=== PATIENT | female | born 1950 | race Caucasian/White ===

== ENCOUNTER 2016-11-10 23:09 | Inpatient (IN) | payer MEDICARE, MEDICAID ==
[~2016-11-10] VITALS: Ht 160 cm; Wt 68.0 kg
--- NOTE | 2016-11-10 23:09 | NUR ---
to bed 2 bib private ambulance from [facility] for increased agitation. receive pt calm and cooperative, no acute distress noted, resp even and unlabored. pt denies si or hi at this time. pt aaox4. pending er md hearn.
--- NOTE | 2016-11-10 23:11 | NUR ---
er md at bedside to eval pt with orders received.
--- NOTE | 2016-11-10 23:27 | NUR ---
blood drawn by shelf stocker.
--- NOTE | 2016-11-10 23:40 | NUR ---
urine sample collected and sent to lab.
[2016-11-10 23:45] LABS: HEMATOCRIT 40 % (33-45); HEMOGLOBIN 12.9 g/dL (11.5-14.8); MEAN CORPUSCULAR HEMOGLOBIN 29 PG (26.0-33.0); MEAN CORPUSCULAR HGB CONC 32 g/dl (31.0-36.0); MEAN CORPUSCULAR VOLUME 91 fL (82-100); PLATELET COUNT (AUTO) 255 /CMM (150-450); RDW COEFFICIENT OF VARIATION 13.3 (11.5-15.0); WHITE BLOOD COUNT (AUTO) 9.1 K/uL (4.3-11.0)
[2016-11-10 23:46] LABS: BASOPHILS % (AUTO) 0.1 % (0.0-2.0); EOSINOPHILS # (AUTO) 0.1 /CMM (0.0-0.7); EOSINOPHILS % (AUTO) 1.1 % (0.0-6.0); LYMPHOCYTES # (AUTO) 2.1 /CMM (0.8-4.8); LYMPHOCYTES % (AUTO) 22.9 % (20.0-44.0); MONOCYTES # (AUTO) 0.5 /CMM (0.1-1.30); MONOCYTES % (AUTO) 5.8 % (2.0-12.0); NEUTROPHILS # (AUTO) 6.4 /CMM (1.8-8.9); NEUTROPHILS % (AUTO) 70.1 % (43.0-81.0)
[2016-11-10 23:48] LABS: CARBON DIOXIDE 33 mmol/L (21-32); CHLORIDE 103 mmol/L (98-107); POTASSIUM 4.4 mmol/L (3.5-5.1); SODIUM SERUM 141 mmol/L (136-145)
[2016-11-10 23:49] LABS: CALCIUM, SERUM 9.2 mg/dL (8.5-10.1); CREATININE 0.9 mg/dL (0.6-1.3); GLUCOSE 99 mg/dL (74-106); UREA NITROGEN, BLOOD 14 mg/dL (7-18)
[2016-11-10 23:53] LABS: ALANINE AMINOTRANSFERASE 17 U/L (12-78); ALKALINE PHOSPHATASE 133 U/L (46-116); ASPARTATE AMINOTRANSFERASE 19 U/L (15-37); BILIRUBIN,DIRECT 0.1 mg/dL (0.0-0.2); BILIRUBIN,TOTAL 0.3 mg/dL (0.2-1.0)
[2016-11-10 23:54] LABS: ACETAMINOPHEN 0 ug/ml (10-30); ALBUMIN 3.3 g/dL (3.4-5.0); ALCOHOL, BLOOD < 3 mg/dL (0-0); SALICYLATE 1.6 mg/dL (2.8-20.0); TOTAL PROTEIN, SERUM 7.8 g/dL (6.4-8.2)
[2016-11-11 00:05] LABS: APPEARANCE,URINE CLEAR (CLEAR)
[2016-11-11 00:06] LABS: COLOR,URINE YELLOW (YELLOW)
--- NOTE | 2016-11-11 00:06 | NUR ---
Johnny COUGHLINW paged for psych eval.
[2016-11-11 00:07] LABS: PROTEIN,URINE TRACE mg/dl (NEGATIVE); UGLUCOSE NEGATIVE (NEGATIVE)
[2016-11-11 00:08] LABS: BILIRUBIN,URINE NEGATIVE (NEGATIVE); BLOOD, URINE TRACE Ery/uL (NEGATIVE); KETONES,URINE TRACE (NEGATIVE); UROBILINOGEN,URINE 0.2 EU/dL (0.2)
[2016-11-11 00:09] LABS: LEUKOCYTE ESTERASE ,URINE 1+ (NEGATIVE); NITRITE, URINE NEGATIVE (NEGATIVE)
[2016-11-11 00:12] LABS: BACTERIA,URINE None seen /HPF (None Seen); SQUAMOUS EPITHELIAL CELL,UR Rare /HPF (None Seen); URINE AMORPHOUS URATE Few /HPF (None Seen)
--- NOTE | 2016-11-11 01:05 | NUR ---
Johnny COUGHLINW at bedside to eval pt. pt remains calm and cooperative at this time.
--- NOTE | 2016-11-11 01:49 | NUR ---
transport called ([facility]) eta 45 min.
--- NOTE | 2016-11-11 02:16 | NUR ---
report called to jen sargent. pending hospital admission.
--- NOTE | 2016-11-11 03:23 | NUR ---
GPS/RN NOTE: ADMITTED FROM [facility] ER, INITIALLY CAME FROM [facility], CAME TO THE UNIT AT 0300 ACCOMPANIED BY 1 MALE ER STAFF. PATIENT ADMITTED ON 5150 HOLD FOR GD. PER HOLD PATIENT HAS HALLUCINATIONS AND DELUSIONS, THREATENS HER ROOMMATE, HX OF PTSD. UPON FACE TO FACE, PATIENT IS A/O X4, COOPERATIVE AND AGITATED. PATIENT THINKS HER WATER IS POISON, STAFF SMOKES COCAINE, CHARGE NURSE HIRES BIG MEN AND SHOOT LASERS, UNABLE TO CARE FOR PATIENT DUE TO HER MENTAL STATE. PATIENT WAS PLACED IN BED COMFORTABLY. PATIENT IS AWAKE, ALERT, ORIENTED X4, AMBULATORY. SHOWS NO S/S OF PAIN AT THIS TIME. RESPIRATION EVEN, BREATHING PATTERN NON-LABORED, WITH EQUAL RISE AND FALL OF THE CHEST. NO APPARENT DISTRESS NOTED. PATIENT IS COOPERATIVE, CALM, RESPONDS APPROPRIATELY TO QUESTIONS. PATIENT IS AMBULATORY, NOTED SPLINT ON HER RIGHT ANKLE. SKIN INTACT. BELONGINGS WERE INVENTORIED AND CHECKED FOR CONTRABAND. PATIENT IS UNDER THE PSYCHIATRIC CARE OF DR. BISHOP, AND UNDER THE MEDICAL CARE OF DR. PRUITT. VALUABLES WERE CHECKED IN TO SAFE. MEDICATION RECONCILIATION FOR FOLLO-UP IN AM. MRSA SCREE TO BE DONE. BED LOCKED AND PLACED ON LOWEST POSITION. WILL CONTINUE TO MONITOR Q 15 MINS. TO MAINTAIN SAFETY.
[2016-11-11] MEDS ORDERED: MAG HYDROX/AL HYDROX/SIMETH 30 ML UDC PO PRN (03:30)
[2016-11-11] MEDS ORDERED: MAGNESIUM HYDROXIDE 30 ML UDC PO PRN (03:30)
[2016-11-11] MEDS ORDERED: ACETAMINOPHEN 325 MG TABLET PO PRN (03:30)
[2016-11-11] MEDS ORDERED: BUPR300T54 PO (04:29)
[2016-11-11] MEDS ORDERED: OMEP20TA68 PO (04:29)
[2016-11-11] MEDS ORDERED: DOCU-170 PO (04:29)
[2016-11-11] MEDS ORDERED: LATA2.5D2 EACHEYE (04:29)
[2016-11-11] MEDS ORDERED: OXYC10TA49 PO (04:29)
[2016-11-11] MEDS ORDERED: CLON0.1T PO (04:29)
[2016-11-11] MEDS ORDERED: CALC-7 PO (04:29)
[2016-11-11] MEDS ORDERED: ARIP5TAB4 PO (04:29)
[2016-11-11] MEDS ORDERED: GABA600T2 PO (04:29)
[2016-11-11] MEDS ORDERED: MULT1TAB73 PO (04:29)
[2016-11-11] MEDS ORDERED: ASCO500T8 PO (04:29)
[2016-11-11] MEDS ORDERED: ALEN70TA45 PO (04:29)
[2016-11-11] MEDS ORDERED: METO-302 PO (04:29)
--- NOTE | 2016-11-11 06:47 | NUR ---
GPS/RN NOTE: FAMILY CALLED TO NOTIFY SHANKAR: ADMISSION, NO ANSWER, LEFT A MESSAGE
[2016-11-11] MEDS ORDERED: OXYC-128 PO (07:55)
[2016-11-11] MEDS ORDERED: DOCU-25 PO (07:55)
[2016-11-11] MEDS ORDERED: CHOL100044 PO (07:55)
[2016-11-11] MEDS ORDERED: POLY17PO4 PO (07:55)
[2016-11-11] MEDS ORDERED: LUBI24CA7 PO (07:55)
[2016-11-11] MEDS ORDERED: LIDO30AD10 TP (07:55)
[2016-11-11] MEDS ORDERED: CLON0.5T4 PO (07:55)
[2016-11-11] MEDS ORDERED: TRAZ-147 PO (07:55)
[2016-11-11] MEDS ORDERED: GUAI5SYR PO (07:55)
[2016-11-11] MEDS ORDERED: MULT-659 PO (07:55)
[2016-11-11] MEDS ORDERED: PSEU-231 PO (07:55)
[2016-11-11] MEDS ORDERED: DULO30CA2 PO (07:55)
[2016-11-11] MEDS ORDERED: ONDA-25 PO (07:55)
[2016-11-11 08:00] VITALS: BP 148/98
[2016-11-11] MEDS ORDERED: CLONIDINE HCL 0.1 MG TABLET PO PRN (12:30)
[2016-11-11] MEDS ORDERED: GUAIFENESIN/D-METHORPHAN HB 5 ML UDC PO PRN (12:30)
[2016-11-11] MEDS ORDERED: DOCUSATE SODIUM 100 MG CAPSULE PO PRN (12:30)
[2016-11-11] MEDS ORDERED: oxyCODONE/APAP (5/325 MG) 1 UDTAB TABLET PO PRN (12:30)
[2016-11-11] MEDS ORDERED: PSEUDOEPHEDRINE HCL 30 MG TABLET PO PRN (12:30)
[2016-11-11] MEDS ORDERED: GABAPENTIN 300 MG CAPSULE PO SCH (13:30)
[2016-11-11] MEDS ORDERED: ONDANSETRON 4 MG TAB.RAPDIS PO PRN (14:00)
[2016-11-11] MEDS: GABAPENTIN 300 MG CAPSULE PO SCH ×2 (14:48→20:15)
[2016-11-11 16:00] VITALS: BP 144/95
[2016-11-11] MEDS: LATANOPROST EYE DROP 0.005% 2.5 ML BOTTLE EACHEYE SCH (16:28)
[2016-11-11] MEDS: DOCUSATE SODIUM 100 MG CAPSULE PO SCH ×2 (16:28→17:00)
[2016-11-11] MEDS: CALCIUM CARB 250MG /VITAMIN D 1 UDTAB PO SCH (16:28)
[2016-11-11] MEDS: METOPROLOL SUCCINATE 25 MG TAB.SR.24H PO SCH (16:28)
--- NOTE | 2016-11-11 16:28 | NUR ---
Patient resides at [facility] [address] [phone]). emergency service worker spoke to patient's son Felton Gill ([phone]) who confirmed that patient was living at [facility]. emergency service worker spoke Ruen from who stated that patient may need another placement. emergency service worker will help form a safe and proper discharge.
[2016-11-11 17:10] LABS: CHOLESTEROL 194 mg/dL (<200); HDL CHOLESTEROL 60 mg/dL (40-60); LDL 114 mg/dL (0-99); TRIGLYCERIDES 67 mg/dL (30-150)
[2016-11-11] MEDS: ARIPIPRAZOLE 5 MG TABLET PO SCH (17:10)
[2016-11-11] MEDS: DULOXETINE HCL 30 MG CAPSULE.DR PO SCH (17:10)
[2016-11-11] MEDS: BUPROPION XL 150 MG TAB.ER.24 PO SCH (17:11)
[2016-11-11] MEDS: oxyCODONE IR immediate release 5 MG CAPSULE PO PRN ×2 (17:13→20:19)
--- NOTE | 2016-11-11 18:46 | NUR ---
Called Dr. Clark on his office for the consult and left a message.
[2016-11-11 20:00] VITALS: BP 137/90
[2016-11-11] MEDS: TEMAZEPAM 7.5 MG CAPSULE PO PRN (23:24)
[2016-11-12] MEDS: clonazePAM 0.5 MG TABLET PO PRN (01:16)
[2016-11-12] MEDS: GABAPENTIN 300 MG CAPSULE PO SCH ×3 (05:00→21:10)
[2016-11-12 06:38] LABS: BASOPHILS % (AUTO) 0.3 % (0.0-2.0); EOSINOPHILS # (AUTO) 0.1 /CMM (0.0-0.7); HEMATOCRIT 36 % (33-45); HEMOGLOBIN 12.1 g/dL (11.5-14.8); LYMPHOCYTES # (AUTO) 1.9 /CMM (0.8-4.8); LYMPHOCYTES % (AUTO) 19.8 % (20.0-44.0); MEAN CORPUSCULAR HEMOGLOBIN 30 PG (26.0-33.0); MEAN CORPUSCULAR HGB CONC 34 g/dl (31.0-36.0); MEAN CORPUSCULAR VOLUME 90 fL (82-100); MONOCYTES # (AUTO) 0.7 /CMM (0.1-1.30); MONOCYTES % (AUTO) 7.8 % (2.0-12.0); NEUTROPHILS # (AUTO) 6.7 /CMM (1.8-8.9); NEUTROPHILS % (AUTO) 71.1 % (43.0-81.0); PLATELET COUNT (AUTO) 237 /CMM (150-450); RDW COEFFICIENT OF VARIATION 13.2 (11.5-15.0); RED BLOOD CELL COUNT(AUTO) 4.02 MIL/uL (4.0-5.2); WHITE BLOOD COUNT (AUTO) 9.5 K/uL (4.3-11.0)
[2016-11-12 07:07] LABS: ALBUMIN 2.8 g/dL (3.4-5.0); BILIRUBIN,TOTAL 0.3 mg/dL (0.2-1.0); CALCIUM, SERUM 8.8 mg/dL (8.5-10.1); CREATININE 0.7 mg/dL (0.6-1.3); POTASSIUM 3.8 mmol/L (3.5-5.1); TOTAL PROTEIN, SERUM 6.9 g/dL (6.4-8.2)
[2016-11-12] MEDS: PANTOPRAZOLE 40 MG TABLET.DR PO SCH (07:55)
[2016-11-12 08:00] VITALS: BP 122/72
[2016-11-12] MEDS: DULOXETINE HCL 30 MG CAPSULE.DR PO SCH (08:18)
[2016-11-12] MEDS: POLYETHYLENE GLYCOL 3350 17 GM POWD.PACK PO SCH (08:18)
[2016-11-12] MEDS: ARIPIPRAZOLE 5 MG TABLET PO SCH (08:18)
[2016-11-12] MEDS: DOCUSATE SODIUM 100 MG CAPSULE PO SCH ×2 (08:19→16:24)
[2016-11-12] MEDS: CALCIUM CARB 250MG /VITAMIN D 1 UDTAB PO SCH ×2 (08:19→16:23)
[2016-11-12] MEDS: MULTIVIT, IRON, MIN NO. 8, FA 1 TAB TABLET PO SCH (08:19)
[2016-11-12] MEDS: METOPROLOL SUCCINATE 25 MG TAB.SR.24H PO SCH ×2 (08:19→16:24)
[2016-11-12] MEDS: ASCORBIC ACID 500 MG TABLET PO SCH (08:19)
[2016-11-12] MEDS: oxyCODONE IR immediate release 5 MG CAPSULE PO PRN ×3 (08:20→21:10)
[2016-11-12] MEDS: BUPROPION XL 150 MG TAB.ER.24 PO SCH (08:22)
[2016-11-12] MEDS: CHOLECALCIFEROL 1,000 UNIT TABLET (VIT D3) PO SCH (08:24)
[2016-11-12] MEDS: LIDOCAINE 5% (PATCH) 1 EA PATCH TP SCH (08:26)
[2016-11-12 16:02] VITALS: BP 119/67
[2016-11-12] MEDS: LATANOPROST EYE DROP 0.005% 2.5 ML BOTTLE EACHEYE SCH (16:24)
--- NOTE | 2016-11-12 19:30 | NUR ---
GPS RN NOTE, RECEIVED PATIENT AWAKE AND IN BED, PATIENT HAS A COMPLAINT OF HEAD ACHE AT 3 OUT 10 O THE PAIN SCALE. PATIENT IS BEING TREATED WITH ORAL PAIN MEDICATION FOR THIS PAIN. PATIENT IS DISPLAYING NO S/S OF APPARENT DISTRESS AT THIS TIME. PATIENT BREATHING IS UNLABORED WITH EQUAL RISE AND FALL OF THE CHEST. PATIENT IS ALERT AND ORIENTED X 1-2 ON ROOM AIR WITH A SPO2 96%. PATIENT COMPLIANT WITH MEDICATION, DEPRESSED, COOPERATIVE, , CONFUSED AT TIMES, REFUSES TO WERE SPLINT ON HER RIGHT FOOT, AND NEEDS REORIENTATION. PATIENT DENIES SUICIDE AND HOMICIDAL IDEATIONS AT THIS TIME. PATIENT ASSISTED WITH TURNING AND REPOSITIONING Q2HR AND PRN FOR COMFORT AND CIRCULATION. PATIENT HAS NO NEEDS AT THIS TIME. PATIENT EDUCATED ON THE USE OF THE CALL PALACIOS. PATIENT BED SIDE RAILS UP X2 FOR SAFETY, BED IS LOCKED AND LOW WILL CONTINUE TO MONITOR AND MAINTAIN SAFETY.
[2016-11-12 20:00] VITALS: BP 141/94
--- NOTE | 2016-11-12 20:30 | NUR ---
GPS RN NOTE, Dr. Clark AT BED SIDE.
--- NOTE | 2016-11-12 20:52 | NUR ---
GPS RN NOTE, DR ELIAZAR ROWLAND AT BEDSIDE GAVE KNEW ORDER OF NAMENDA 5 MG PO QD, MRI OF THE BRAIN W/O CONTRAST IN AM, AND EEG IN THE AM. ALL ORDERS NOTED AND CARRIED OUT WILL CONTINUE TO MONITOR THIS PATIENT.
--- NOTE | 2016-11-12 21:10 | NUR ---
GPS RN NOTE, PATIENT HAS A COMPLAINT OF LOWER BACK PAIN 7 OUT 10 ON THE PAIN SCALE. PATIENT VITAL SIGNS ARE STABLE. GAVE OXY IR 10 MG PO Q6HR PRN ORDERED. WILL REASSESS PAIN AND I WILL CONTINUE TO MONITOR THIS PATIENT.
[2016-11-13] MEDS: GABAPENTIN 300 MG CAPSULE PO SCH ×3 (05:50→21:36)
[2016-11-13 08:00] VITALS: BP 124/79
[2016-11-13] MEDS: ARIPIPRAZOLE 5 MG TABLET PO SCH (08:40)
[2016-11-13] MEDS: DULOXETINE HCL 30 MG CAPSULE.DR PO SCH (08:40)
[2016-11-13] MEDS: BUPROPION XL 150 MG TAB.ER.24 PO SCH (08:41)
[2016-11-13] MEDS: METOPROLOL SUCCINATE 25 MG TAB.SR.24H PO SCH ×2 (08:41→17:05)
[2016-11-13] MEDS: MEMANTINE HCL 5 MG TABLET PO SCH (08:41)
[2016-11-13] MEDS: ASCORBIC ACID 500 MG TABLET PO SCH (08:41)
[2016-11-13] MEDS: MULTIVIT, IRON, MIN NO. 8, FA 1 TAB TABLET PO SCH (08:41)
[2016-11-13] MEDS: DOCUSATE SODIUM 100 MG CAPSULE PO SCH ×2 (08:41→17:05)
[2016-11-13] MEDS: CALCIUM CARB 250MG /VITAMIN D 1 UDTAB PO SCH ×2 (08:41→17:05)
[2016-11-13] MEDS: PANTOPRAZOLE 40 MG TABLET.DR PO SCH (08:41)
[2016-11-13] MEDS: CHOLECALCIFEROL 1,000 UNIT TABLET (VIT D3) PO SCH (08:41)
[2016-11-13] MEDS: POLYETHYLENE GLYCOL 3350 17 GM POWD.PACK PO SCH (08:44)
[2016-11-13] MEDS: LIDOCAINE 5% (PATCH) 1 EA PATCH TP SCH (08:51)
[2016-11-13] MEDS: oxyCODONE IR immediate release 5 MG CAPSULE PO PRN ×3 (09:09→23:35)
[2016-11-13] MEDS: clonazePAM 0.5 MG TABLET PO PRN (12:54)
--- NOTE | 2016-11-13 12:54 | NUR ---
GPS RN: KLONOPIN 0.5MG ADMINISTERED FOR C/O ANXIETY. VS STABLE, CONTINUE TO MONITOR.
[2016-11-13 16:06] VITALS: BP 130/75
[2016-11-13] MEDS: LATANOPROST EYE DROP 0.005% 2.5 ML BOTTLE EACHEYE SCH (17:08)
--- NOTE | 2016-11-13 20:30 | NUR ---
GPS RN NOTE, PATIENT REFUSED TO HAVE MRI OF THE BRAIN DONE TO DAY. OFFERED THREE TIMES AND STILL PATIENT REFUSED STATING, " I DON'T WON'T TO BE EXPOSED TO THAT MUCH RADIATION, I RATHER DO A CT SCAN". EDUCATED THE PATIENT ON THE RISKS AND BENEFITS OF DOING AND REFUSING AN MRI. CALLED DR ELIAZAR ROWLAND OFFICE AND LEFT MESSAGE FOR MD REGARDING PATIENT DECISION AND PREFERENCE. WILL CONTINUE TO MONITOR THIS PATIENT.
[2016-11-13 20:39] VITALS: BP 128/75
--- NOTE | 2016-11-13 20:50 | NUR ---
patient refusing MRI
[2016-11-13] MEDS: TEMAZEPAM 7.5 MG CAPSULE PO PRN (22:01)
[2016-11-14] MEDS: clonazePAM 0.5 MG TABLET PO PRN (03:14)
[2016-11-14] MEDS: GABAPENTIN 300 MG CAPSULE PO SCH ×3 (04:49→21:31)
[2016-11-14 08:00] VITALS: BP 120/80
[2016-11-14] MEDS: POLYETHYLENE GLYCOL 3350 17 GM POWD.PACK PO SCH (08:11)
[2016-11-14] MEDS: CALCIUM CARB 250MG /VITAMIN D 1 UDTAB PO SCH ×2 (08:13→16:49)
[2016-11-14] MEDS: ASCORBIC ACID 500 MG TABLET PO SCH (08:13)
[2016-11-14] MEDS: MULTIVIT, IRON, MIN NO. 8, FA 1 TAB TABLET PO SCH (08:13)
[2016-11-14] MEDS: MEMANTINE HCL 5 MG TABLET PO SCH (08:13)
[2016-11-14] MEDS: BUPROPION XL 150 MG TAB.ER.24 PO SCH (08:13)
[2016-11-14] MEDS: DOCUSATE SODIUM 100 MG CAPSULE PO SCH ×2 (08:13→16:49)
[2016-11-14] MEDS: DULOXETINE HCL 30 MG CAPSULE.DR PO SCH (08:13)
[2016-11-14] MEDS: CHOLECALCIFEROL (VITAMIN D 3) 400 UNIT TABLET PO SCH (08:13)
[2016-11-14] MEDS: METOPROLOL SUCCINATE 25 MG TAB.SR.24H PO SCH ×2 (08:14→16:51)
[2016-11-14] MEDS: PANTOPRAZOLE 40 MG TABLET.DR PO SCH (08:14)
[2016-11-14] MEDS: LIDOCAINE 5% (PATCH) 1 EA PATCH TP SCH (08:14)
[2016-11-14] MEDS: ARIPIPRAZOLE 5 MG TABLET PO SCH (08:26)
[2016-11-14] MEDS: oxyCODONE IR immediate release 5 MG CAPSULE PO PRN (09:12)
[2016-11-14 16:22] VITALS: BP 112/91
[2016-11-14] MEDS: LATANOPROST EYE DROP 0.005% 2.5 ML BOTTLE EACHEYE SCH (16:51)
--- NOTE | 2016-11-14 17:15 | NUR ---
RN-CO: Obtained an order for 1:1 sitter for patient only during 7a-7p shift, due to her right ankle braces. Dr Carmona gave an order , noted.
[2016-11-14 20:47] VITALS: BP 130/74
[2016-11-14 21:26] VITALS: BP 130/74
[2016-11-14] MEDS: TEMAZEPAM 7.5 MG CAPSULE PO PRN (21:31)
[2016-11-15] MEDS: GABAPENTIN 300 MG CAPSULE PO SCH ×3 (06:34→21:14)
[2016-11-15 08:00] VITALS: BP 148/83
[2016-11-15] MEDS: PANTOPRAZOLE 40 MG TABLET.DR PO SCH (08:09)
[2016-11-15] MEDS: ARIPIPRAZOLE 5 MG TABLET PO SCH (08:10)
[2016-11-15] MEDS: DULOXETINE HCL 30 MG CAPSULE.DR PO SCH (08:11)
[2016-11-15] MEDS: CALCIUM CARB 250MG /VITAMIN D 1 UDTAB PO SCH ×2 (08:12→17:00)
[2016-11-15] MEDS: MEMANTINE HCL 5 MG TABLET PO SCH (08:12)
[2016-11-15] MEDS: BUPROPION XL 150 MG TAB.ER.24 PO SCH (08:13)
[2016-11-15] MEDS: CHOLECALCIFEROL (VITAMIN D 3) 400 UNIT TABLET PO SCH (08:13)
[2016-11-15] MEDS: ASCORBIC ACID 500 MG TABLET PO SCH (08:13)
[2016-11-15] MEDS: METOPROLOL SUCCINATE 25 MG TAB.SR.24H PO SCH ×3 (08:14→18:28)
[2016-11-15] MEDS: ALENDRONATE 70 MG TABLET PO SCH (08:20)
[2016-11-15] MEDS: LIDOCAINE 5% (PATCH) 1 EA PATCH TP SCH (08:20)
[2016-11-15] MEDS: POLYETHYLENE GLYCOL 3350 17 GM POWD.PACK PO SCH (08:22)
[2016-11-15] MEDS: DOCUSATE SODIUM 100 MG CAPSULE PO SCH ×2 (08:22→18:09)
[2016-11-15] MEDS: MULTIVIT, IRON, MIN NO. 8, FA 1 TAB TABLET PO SCH (08:26)
[2016-11-15] MEDS: oxyCODONE IR immediate release 5 MG CAPSULE PO PRN ×2 (08:39→19:37)
--- NOTE | 2016-11-15 09:00 | NUR ---
[id number]: PT IS ANXIOUS, RESTLESS, NEEDY. PT IS ABLE TO PARTICIPATE IN GROUP. PT HAS A SITTER 1:1 OBSERVATION.
[2016-11-15] MEDS: clonazePAM 0.5 MG TABLET PO PRN (12:13)
--- NOTE | 2016-11-15 12:31 | NUR ---
ventilation worker [facility] ( / fax: [phone]) [id number] [facility] [id number].
[2016-11-15] MEDS: ENOXAPARIN SODIUM 40 MG/0.4 ML DISP.SYRIN SQ SCH (13:47)
[2016-11-15 16:00] VITALS: BP 109/72
[2016-11-15] MEDS: LATANOPROST EYE DROP 0.005% 2.5 ML BOTTLE EACHEYE SCH (18:10)
--- NOTE | 2016-11-15 19:30 | NUR ---
GPS RN NOTE, RECEIVED PATIENT AWAKE AND IN BED, PATIENT HAS A COMPLAINT OF LOWER BACK PAIN AT 7 OUT 10 O THE PAIN SCALE. PATIENT IS BEING TREATED WITH ORAL PAIN MEDICATION FOR THIS PAIN. PATIENT IS DISPLAYING NO S/S OF APPARENT DISTRESS AT THIS TIME. PATIENT BREATHING IS UNLABORED WITH EQUAL RISE AND FALL OF THE CHEST. PATIENT IS ALERT AND ORIENTED X 1-2 ON ROOM AIR WITH A SPO2 97%. PATIENT COMPLIANT WITH MEDICATION, DEPRESSED, COOPERATIVE, , CONFUSED AT TIMES, PATIENT USES SPLINT ON HER RIGHT FOOT IN AM, AND NEEDS REORIENTATION. PATIENT DENIES SUICIDE AND HOMICIDAL IDEATIONS AT THIS TIME. PATIENT ASSISTED WITH TURNING AND REPOSITIONING Q2HR AND PRN FOR COMFORT AND CIRCULATION. PATIENT HAS NO NEEDS AT THIS TIME. PATIENT EDUCATED ON THE USE OF THE CALL PALACIOS. PATIENT BED SIDE RAILS UP X2 FOR SAFETY, BED IS LOCKED AND LOW WILL CONTINUE TO MONITOR AND MAINTAIN SAFETY.
--- NOTE | 2016-11-15 19:37 | NUR ---
GPS RN NOTE, PATIENT HAS A COMPLAINT OF LOWER BACK PAIN AT 8 OUT 10 ON THE PAIN SCALE AND WOULD LIKE MEDICATION AT THIS TIME. PATIENT VITAL SIGNS ARE STABLE. GAVE OXY IR 10MG PO Q6HR PRN ORDERED. WILL REASSESS FOR PAIN AND I WILL CONTINUE TO MONITOR THIS PATIENT.
[2016-11-15 19:55] VITALS: BP 144/90
[2016-11-15] MEDS: TEMAZEPAM 7.5 MG CAPSULE PO PRN (21:15)
--- NOTE | 2016-11-15 21:15 | NUR ---
GPS RN NOTE, PATIENT HAS A COMPLAINT OF NOT BEING ABLE TO SLEEP AND WOULD LIKE A SLEEPING AID AT THIS TIME. PATIENT VITAL SIGNS ARE STABLE. GAVE RESTORIL 7.5MG PO HS ORDERED. WILL REASSESS FOR INSOMNIA AND I WILL CONTINUE TO MONITOR THIS PATIENT.
[2016-11-16] MEDS: clonazePAM 0.5 MG TABLET PO PRN (00:11)
--- NOTE | 2016-11-16 00:11 | NUR ---
GPS RN NOTE, PATIENT HAS A COMPLAINT OF FEELING ANXIOUS AND WOULD LIKE MEDICATION AT THIS TIME. PATIENT VITAL SIGNS ARE STABLE. GAVE KLONOPIN 0.5MG PO Q4HR PRN ORDERED. WILL REASSESS FOR ANXIETY AND I WILL CONTINUE TO MONITOR THIS PATIENT.
[2016-11-16] MEDS: oxyCODONE IR immediate release 5 MG CAPSULE PO PRN ×4 (01:17→20:55)
[2016-11-16] MEDS: GABAPENTIN 300 MG CAPSULE PO SCH ×3 (05:33→21:00)
[2016-11-16] MEDS: PANTOPRAZOLE 40 MG TABLET.DR PO SCH ×2 (06:31→08:35)
[2016-11-16 07:22] LABS: BASOPHILS % (AUTO) 0.1 % (0.0-2.0); EOSINOPHILS # (AUTO) 0.1 /CMM (0.0-0.7); EOSINOPHILS % (AUTO) 1.2 % (0.0-6.0); HEMATOCRIT 38 % (33-45); HEMOGLOBIN 12.7 g/dL (11.5-14.8); LYMPHOCYTES # (AUTO) 1.9 /CMM (0.8-4.8); LYMPHOCYTES % (AUTO) 21.5 % (20.0-44.0); MEAN CORPUSCULAR HEMOGLOBIN 30 PG (26.0-33.0); MEAN CORPUSCULAR HGB CONC 34 g/dl (31.0-36.0); MEAN CORPUSCULAR VOLUME 89 fL (82-100); MONOCYTES # (AUTO) 0.7 /CMM (0.1-1.30); MONOCYTES % (AUTO) 7.7 % (2.0-12.0); NEUTROPHILS # (AUTO) 6.3 /CMM (1.8-8.9); NEUTROPHILS % (AUTO) 69.5 % (43.0-81.0); PLATELET COUNT (AUTO) 254 /CMM (150-450); RDW COEFFICIENT OF VARIATION 13.4 (11.5-15.0); RED BLOOD CELL COUNT(AUTO) 4.24 MIL/uL (4.0-5.2)
[2016-11-16 07:40] LABS: CALCIUM, SERUM 9.1 mg/dL (8.5-10.1); CREATININE 0.7 mg/dL (0.6-1.3); MAGNESIUM 2.1 mg/dL (1.8-2.4); PHOSPHORUS 3.4 mg/dL (2.5-4.9); POTASSIUM 3.9 mmol/L (3.5-5.1)
[2016-11-16 08:00] VITALS: BP 149/90
[2016-11-16] MEDS: METOPROLOL SUCCINATE 25 MG TAB.SR.24H PO SCH ×2 (08:34→15:58)
[2016-11-16] MEDS: BUPROPION XL 150 MG TAB.ER.24 PO SCH (08:34)
[2016-11-16] MEDS: ARIPIPRAZOLE 5 MG TABLET PO SCH (08:34)
[2016-11-16] MEDS: MEMANTINE HCL 5 MG TABLET PO SCH (08:35)
[2016-11-16] MEDS: CHOLECALCIFEROL (VITAMIN D 3) 400 UNIT TABLET PO SCH (08:35)
[2016-11-16] MEDS: DULOXETINE HCL 30 MG CAPSULE.DR PO SCH (08:35)
[2016-11-16] MEDS: ASCORBIC ACID 500 MG TABLET PO SCH (08:35)
[2016-11-16] MEDS: CALCIUM CARB 250MG /VITAMIN D 1 UDTAB PO SCH ×2 (08:35→15:59)
[2016-11-16] MEDS: DOCUSATE SODIUM 100 MG CAPSULE PO SCH ×2 (08:35→15:58)
[2016-11-16] MEDS: MULTIVIT, IRON, MIN NO. 8, FA 1 TAB TABLET PO SCH (08:35)
[2016-11-16] MEDS: POLYETHYLENE GLYCOL 3350 17 GM POWD.PACK PO SCH (08:35)
[2016-11-16] MEDS: ENOXAPARIN SODIUM 40 MG/0.4 ML DISP.SYRIN SQ SCH (08:37)
[2016-11-16] MEDS: LIDOCAINE 5% (PATCH) 1 EA PATCH TP SCH (09:22)
[2016-11-16] MEDS: LATANOPROST EYE DROP 0.005% 2.5 ML BOTTLE EACHEYE SCH (15:59)
[2016-11-16 16:00] VITALS: BP 132/80
[2016-11-16 20:25] VITALS: BP 121/77
[2016-11-17] MEDS: GABAPENTIN 300 MG CAPSULE PO SCH ×3 (05:11→21:26)
[2016-11-17] MEDS: oxyCODONE IR immediate release 5 MG CAPSULE PO PRN ×3 (05:11→20:14)
[2016-11-17 08:06] VITALS: BP 134/81
[2016-11-17] MEDS: POLYETHYLENE GLYCOL 3350 17 GM POWD.PACK PO SCH (08:39)
[2016-11-17] MEDS: CHOLECALCIFEROL (VITAMIN D 3) 400 UNIT TABLET PO SCH (08:39)
[2016-11-17] MEDS: DULOXETINE HCL 30 MG CAPSULE.DR PO SCH (08:39)
[2016-11-17] MEDS: BUPROPION XL 150 MG TAB.ER.24 PO SCH (08:40)
[2016-11-17] MEDS: METOPROLOL SUCCINATE 25 MG TAB.SR.24H PO SCH ×2 (08:41→16:54)
[2016-11-17] MEDS: PANTOPRAZOLE 40 MG TABLET.DR PO SCH (08:42)
[2016-11-17] MEDS: ARIPIPRAZOLE 5 MG TABLET PO SCH (08:42)
[2016-11-17] MEDS: DOCUSATE SODIUM 100 MG CAPSULE PO SCH ×2 (08:42→16:52)
[2016-11-17] MEDS: ASCORBIC ACID 500 MG TABLET PO SCH (08:43)
[2016-11-17] MEDS: LIDOCAINE 5% (PATCH) 1 EA PATCH TP SCH (08:43)
[2016-11-17] MEDS: MULTIVIT, IRON, MIN NO. 8, FA 1 TAB TABLET PO SCH (08:44)
[2016-11-17] MEDS: CALCIUM CARB 250MG /VITAMIN D 1 UDTAB PO SCH ×2 (08:44→16:52)
[2016-11-17] MEDS: ENOXAPARIN SODIUM 40 MG/0.4 ML DISP.SYRIN SQ SCH (08:49)
[2016-11-17] MEDS: MEMANTINE HCL 5 MG TABLET PO SCH (08:55)
--- NOTE | 2016-11-17 12:22 | NUR ---
ADMINISTERED OXI IR 10 MG PO PRN PER PATIENT REQUEST FOR CHRONIC LOWER BACK PAIN, V/S TAKE BP-130/79, P-80, CONTINUED MONITORING, ENCOURAGED TO INCREASE FLUID INTAKE.
[2016-11-17] MEDS: clonazePAM 0.5 MG TABLET PO PRN (14:10)
--- NOTE | 2016-11-17 14:10 | NUR ---
ADMINISTERED KLONOPIN 0.5 MG PO PRN FOR ANXIETY PER PATIENT REQUEST, V/S TAKEN BP-130/78, P-80, CONTINUED MONITORING.
--- NOTE | 2016-11-17 15:39 | NUR ---
day care worker faxed initial review packet to [facility] [id number] [facility] [place] [address]. (fax: [phone]/ ) and patient was accepted to the facility.
[2016-11-17 15:40] VITALS: BP 121/73
[2016-11-17] MEDS: LATANOPROST EYE DROP 0.005% 2.5 ML BOTTLE EACHEYE SCH (16:53)
[2016-11-17 19:52] LABS: APPEARANCE,URINE CLEAR (CLEAR); BILIRUBIN,URINE NEGATIVE (NEGATIVE); BLOOD, URINE TRACE-INTA Ery/uL (NEGATIVE); COLOR,URINE YELLOW (YELLOW); KETONES,URINE NEGATIVE (NEGATIVE); LEUKOCYTE ESTERASE ,URINE TRACE (NEGATIVE); NITRITE, URINE NEGATIVE (NEGATIVE); PROTEIN,URINE NEGATIVE (NEGATIVE); UGLUCOSE NEGATIVE (NEGATIVE); UROBILINOGEN,URINE 0.2 EU/dL (0.2)
[2016-11-17 20:00] VITALS: BP 126/82
[2016-11-17 20:04] LABS: BACTERIA,URINE None seen /HPF (None Seen); RBC,URINE 0-2 /HPF (0-2); SQUAMOUS EPITHELIAL CELL,UR Few /HPF (None Seen)
[2016-11-17] MEDS: TEMAZEPAM 7.5 MG CAPSULE PO PRN (21:28)
[2016-11-18] MEDS: GABAPENTIN 300 MG CAPSULE PO SCH ×3 (06:07→20:48)
--- NOTE | 2016-11-18 06:15 | NUR ---
GPS/RN SLEEPING, COMFORTABLE, NO DISTRESS NOTED. NO BEHAVIOR PROBLEM OVERNIGHT. WILL CONTINUE TO MONITOR.
[2016-11-18 08:00] VITALS: BP 116/72
[2016-11-18] MEDS: MEMANTINE HCL 5 MG TABLET PO SCH (08:42)
[2016-11-18] MEDS: DULOXETINE HCL 30 MG CAPSULE.DR PO SCH (08:42)
[2016-11-18] MEDS: DOCUSATE SODIUM 100 MG CAPSULE PO SCH ×2 (08:42→18:41)
[2016-11-18] MEDS: ARIPIPRAZOLE 5 MG TABLET PO SCH (08:42)
[2016-11-18] MEDS: CALCIUM CARB 250MG /VITAMIN D 1 UDTAB PO SCH ×2 (08:42→18:42)
[2016-11-18] MEDS: METOPROLOL SUCCINATE 25 MG TAB.SR.24H PO SCH ×2 (08:43→18:42)
[2016-11-18] MEDS: oxyCODONE IR immediate release 5 MG CAPSULE PO PRN ×3 (08:43→20:48)
[2016-11-18] MEDS: BUPROPION XL 150 MG TAB.ER.24 PO SCH (08:43)
[2016-11-18] MEDS: ENOXAPARIN SODIUM 40 MG/0.4 ML DISP.SYRIN SQ SCH (08:56)
[2016-11-18] MEDS: LIDOCAINE 5% (PATCH) 1 EA PATCH TP SCH (08:56)
[2016-11-18] MEDS: PANTOPRAZOLE 40 MG TABLET.DR PO SCH (08:59)
[2016-11-18] MEDS: MULTIVIT, IRON, MIN NO. 8, FA 1 TAB TABLET PO SCH (08:59)
[2016-11-18] MEDS: POLYETHYLENE GLYCOL 3350 17 GM POWD.PACK PO SCH (08:59)
[2016-11-18] MEDS: ASCORBIC ACID 500 MG TABLET PO SCH (08:59)
[2016-11-18] MEDS: CHOLECALCIFEROL (VITAMIN D 3) 400 UNIT TABLET PO SCH (08:59)
[2016-11-18] MEDS: clonazePAM 0.5 MG TABLET PO PRN ×2 (13:30→21:42)
--- NOTE | 2016-11-18 15:18 | NUR ---
GPS/RN OXI IR PO GIVEN FOR PAIN REQUESTED.
[2016-11-18 15:29] VITALS: BP 130/76
[2016-11-18] MEDS: LATANOPROST EYE DROP 0.005% 2.5 ML BOTTLE EACHEYE SCH (18:40)
--- NOTE | 2016-11-18 19:50 | NUR ---
RN NOTES RECEIVED PX AWAKE AND IN BED, NO S/SX OR COMPLAINTS OF PAIN AT THIS TIME. PX IS DISPLAYING NO S/SX OF APPARENT DISTRESS AT THIS TIME. PATIENT BREATHING IS UNLABORED WITH EQUAL RISE AND FALL OF THE CHEST. PATIENT IS ALERT AND ORIENTED X 4, ON ROOM AIR WITH SPO2 98%. PATIENT IS MED COMPLIANT. PATIENT DENIES SUICIDE IDEATIONS OR HOMICIDAL IDEATIONS AT THIS TIME. PATIENT ASSISTED WITH TURNING AND REPOSITIONING Q2 HR AND PRN FOR COMFORT AND CIRCULATION. PATIENT HAS NO NEEDS AT THIS TIME. PATIENT EDUCATED ON THE USE OF THE CALL PALACIOS. PATIENT BED SIDE RAILS UP X 2 FOR SAFETY, BED IS LOCKED AND LOW AND WILL CONTINUE TO MONITOR AND MAINTAIN SAFETY.
[2016-11-18 20:00] VITALS: BP 109/69
--- NOTE | 2016-11-18 20:48 | NUR ---
RN NOTES COMPLAINED OF LOWER BACK PAIN 10/10 ACHING/PULLING, RADIATING TO BILAT UPPER BACK, PX SAID "PAIN NEVER TRULY GOES AWAY" OXY-IR GIVEN PO.
--- NOTE | 2016-11-18 21:42 | NUR ---
RN NOTES PAIN SCORE NOW 4/10, HOWEVER PX NOW COMPLAINING OF FEELING ANXIOUS, DENIED DEPRESSION OR SUICIAL THOUGHTS OR HALLUCINATIONS; GAVE KLONOPIN PO, ALSO PER PX REQUEST.
[2016-11-18] MEDS: TEMAZEPAM 7.5 MG CAPSULE PO PRN (23:02)
--- NOTE | 2016-11-18 23:02 | NUR ---
RN NOTES PX SAYS ANXIETY HAS LESSENED BUT SHE IS NOT ABLE TO SLEEP, GAVE RESTORIL PER PX REQUEST. DENIED PAIN, SOB, N/V.
[2016-11-19] MEDS: GABAPENTIN 300 MG CAPSULE PO SCH ×3 (05:08→20:50)
--- NOTE | 2016-11-19 06:48 | NUR ---
RN NOTES NO OVERNIGHT EVENTS; SLEPT FOR 5 HOURS; DENIED PAIN, SOB, N/V; REFUSED EARLY AM CARE; SITTER AT BEDSIDE; CALL PALACIOS WITHIN REACH. WILL ENDORSE TO NEXT RN.
[2016-11-19] MEDS: PANTOPRAZOLE 40 MG TABLET.DR PO SCH (07:53)
[2016-11-19 08:00] VITALS: BP 116/60
[2016-11-19] MEDS: CHOLECALCIFEROL (VITAMIN D 3) 400 UNIT TABLET PO SCH (08:48)
[2016-11-19] MEDS: DOCUSATE SODIUM 100 MG CAPSULE PO SCH ×2 (08:48→16:44)
[2016-11-19] MEDS: MULTIVIT, IRON, MIN NO. 8, FA 1 TAB TABLET PO SCH (08:48)
[2016-11-19] MEDS: ARIPIPRAZOLE 5 MG TABLET PO SCH (08:49)
[2016-11-19] MEDS: MEMANTINE HCL 5 MG TABLET PO SCH (08:49)
[2016-11-19] MEDS: CALCIUM CARB 250MG /VITAMIN D 1 UDTAB PO SCH ×2 (08:50→16:44)
[2016-11-19] MEDS: BUPROPION XL 150 MG TAB.ER.24 PO SCH (08:50)
[2016-11-19] MEDS: DULOXETINE HCL 30 MG CAPSULE.DR PO SCH (08:50)
[2016-11-19] MEDS: ASCORBIC ACID 500 MG TABLET PO SCH (08:50)
[2016-11-19] MEDS: METOPROLOL SUCCINATE 25 MG TAB.SR.24H PO SCH ×2 (08:54→16:45)
[2016-11-19] MEDS: LIDOCAINE 5% (PATCH) 1 EA PATCH TP SCH (08:54)
[2016-11-19] MEDS: ENOXAPARIN SODIUM 40 MG/0.4 ML DISP.SYRIN SQ SCH (09:02)
[2016-11-19] MEDS: POLYETHYLENE GLYCOL 3350 17 GM POWD.PACK PO SCH (09:20)
[2016-11-19] MEDS: oxyCODONE IR immediate release 5 MG CAPSULE PO PRN ×2 (09:27→16:51)
--- NOTE | 2016-11-19 09:29 | NUR ---
GAMING CAGE CASHIER-NOTES PATIENT C/O 9/10 LOWER BACK PAIN.OXY Ir 10 MG P.O GIVEN PRN ORDER. WILL CONT. MONITORING FOR SAFETY.
--- NOTE | 2016-11-19 09:45 | NUR ---
DIRECTOR OF PHARMACY-NOTES MIRALAX 17GM WAS WASTED DUE TO ACCIDENTALLY SPILLED .CHARGE NURSE AWARE.
[2016-11-19 15:57] VITALS: BP 136/83
[2016-11-19] MEDS: LATANOPROST EYE DROP 0.005% 2.5 ML BOTTLE EACHEYE SCH (17:05)
[2016-11-19 20:00] VITALS: BP 135/75
[2016-11-19] MEDS: TEMAZEPAM 7.5 MG CAPSULE PO PRN (22:09)
[2016-11-19] MEDS: clonazePAM 0.5 MG TABLET PO PRN (23:25)
--- NOTE | 2016-11-19 23:28 | NUR ---
AT 2325 ADMINISTERED KLONOPIN 0.5 MG PO PRN FOR ANXIETY PER PATIENT REQUEST, V/S TAKEN BP-135/77, P-82, WILL CONTINUED TO MONITORING.
[2016-11-20] MEDS: oxyCODONE IR immediate release 5 MG CAPSULE PO PRN ×3 (01:05→23:36)
--- NOTE | 2016-11-20 01:08 | NUR ---
RN-NOTES AT 0105 ,PATIENT C/O 9/10 LOWER BACK PAIN.OXY Ir 10 MG P.O GIVEN PRN ORDER. V/S WNL ,WILL CONTINUE. MONITORING FOR SAFETY.
[2016-11-20] MEDS: GABAPENTIN 300 MG CAPSULE PO SCH ×3 (05:13→21:00)
[2016-11-20 08:00] VITALS: BP 117/77
[2016-11-20] MEDS: PANTOPRAZOLE 40 MG TABLET.DR PO SCH (08:07)
[2016-11-20] MEDS: MULTIVIT, IRON, MIN NO. 8, FA 1 TAB TABLET PO SCH (08:20)
[2016-11-20] MEDS: CHOLECALCIFEROL (VITAMIN D 3) 400 UNIT TABLET PO SCH (08:20)
[2016-11-20] MEDS: BUPROPION XL 150 MG TAB.ER.24 PO SCH (08:20)
[2016-11-20] MEDS: DULOXETINE HCL 30 MG CAPSULE.DR PO SCH (08:20)
[2016-11-20] MEDS: CALCIUM CARB 250MG /VITAMIN D 1 UDTAB PO SCH ×2 (08:21→17:02)
[2016-11-20] MEDS: ARIPIPRAZOLE 5 MG TABLET PO SCH (08:21)
[2016-11-20] MEDS: DOCUSATE SODIUM 100 MG CAPSULE PO SCH ×2 (08:21→17:02)
[2016-11-20] MEDS: MEMANTINE HCL 5 MG TABLET PO SCH (08:21)
[2016-11-20] MEDS: POLYETHYLENE GLYCOL 3350 17 GM POWD.PACK PO SCH (08:22)
[2016-11-20] MEDS: ASCORBIC ACID 500 MG TABLET PO SCH (08:22)
[2016-11-20] MEDS: METOPROLOL SUCCINATE 25 MG TAB.SR.24H PO SCH ×2 (08:23→17:05)
[2016-11-20] MEDS: ENOXAPARIN SODIUM 40 MG/0.4 ML DISP.SYRIN SQ SCH (08:25)
[2016-11-20] MEDS: LIDOCAINE 5% (PATCH) 1 EA PATCH TP SCH (08:52)
[2016-11-20] MEDS: clonazePAM 0.5 MG TABLET PO PRN (12:34)
--- NOTE | 2016-11-20 12:35 | NUR ---
LNV-NOTES PATIENT REQUESTING KLONOPIN FOR HER ANXIETY. KLONOPIN 0.5MG P.O GIVEN PRN ORDER. WILL CONT. 1:1 MONITORING FOR SAFETY AND BEHAVIOR.
[2016-11-20 16:00] VITALS: BP 117/62
[2016-11-20] MEDS: LATANOPROST EYE DROP 0.005% 2.5 ML BOTTLE EACHEYE SCH (17:17)
--- NOTE | 2016-11-20 17:21 | NUR ---
PSYCHOTHERAPIST COUNSELOR-NOTES PATIENT C/O 9/10 LOWER BACK PAIN.OXY Ir 10 MG P.O GIVEN PRN ORDER. WILL CONT. MONITORING FOR SAFETY.
[2016-11-20 20:21] VITALS: BP 121/77
--- NOTE | 2016-11-20 21:11 | NUR ---
GPS/RN NOTE: PATIENT REFUSED NEURONTIN DOSE TONIGHT AND IN THE MORNING, PREFERS TOP DISCUSS WITH HER DOCTOR NEREYDA AM, STATED THAT NEURONTIN IS VERY UPSETTING TO KEMAR STOMACH EVEN IF SHE HAS EATEN, HAS BEEN TAKING IT FOR SO MANY YEARS.
[2016-11-20] MEDS: TEMAZEPAM 7.5 MG CAPSULE PO PRN (21:53)
--- NOTE | 2016-11-20 21:54 | NUR ---
GPS/RN NOTE: C/O INSOMNIA, TEMAZEPAM 7.5 MG CAP 1 PO GIVEN.
--- NOTE | 2016-11-20 23:07 | NUR ---
GPS/RN NOTE; PATIENT STILL UP, C/O SHARP PAIN RIGHT SIDE OF HER BODY 7/10 ON PAIN SCALE. PAIN MEDICATION DUE AT 2320 TONIGHT.
--- NOTE | 2016-11-20 23:37 | NUR ---
GPS/RN NOTE: C/O SHARP PAIN, RIGHT SIDE OF HER BODY, 7/10 ON PAIN SCALE, OXYCODONE 10 MG PO GIVEN.
[2016-11-21] MEDS: GABAPENTIN 300 MG CAPSULE PO SCH ×3 (04:19→21:00)
[2016-11-21] MEDS: oxyCODONE IR immediate release 5 MG CAPSULE PO PRN ×3 (05:16→18:03)
--- NOTE | 2016-11-21 05:17 | NUR ---
GPS/RN NOTE: RIGHT ISDE OF THE BODY HURTS 7/10 ON PAIN SCALE, OXYCODONE 10 MG TAB PO GIVEN
[2016-11-21 08:00] VITALS: BP 142/90
[2016-11-21] MEDS: ASCORBIC ACID 500 MG TABLET PO SCH (08:49)
[2016-11-21] MEDS: PANTOPRAZOLE 40 MG TABLET.DR PO SCH (08:49)
[2016-11-21] MEDS: CHOLECALCIFEROL (VITAMIN D 3) 400 UNIT TABLET PO SCH (08:51)
[2016-11-21] MEDS: MEMANTINE HCL 5 MG TABLET PO SCH (08:51)
[2016-11-21] MEDS: DULOXETINE HCL 30 MG CAPSULE.DR PO SCH (08:51)
[2016-11-21] MEDS: CALCIUM CARB 250MG /VITAMIN D 1 UDTAB PO SCH ×2 (08:51→17:09)
[2016-11-21] MEDS: METOPROLOL SUCCINATE 25 MG TAB.SR.24H PO SCH ×2 (08:51→17:10)
[2016-11-21] MEDS: BUPROPION XL 150 MG TAB.ER.24 PO SCH (08:52)
[2016-11-21] MEDS: MULTIVIT, IRON, MIN NO. 8, FA 1 TAB TABLET PO SCH (08:52)
[2016-11-21] MEDS: ARIPIPRAZOLE 5 MG TABLET PO SCH (08:53)
[2016-11-21] MEDS: POLYETHYLENE GLYCOL 3350 17 GM POWD.PACK PO SCH (08:54)
[2016-11-21] MEDS: DOCUSATE SODIUM 100 MG CAPSULE PO SCH ×2 (09:01→17:00)
[2016-11-21] MEDS: ENOXAPARIN SODIUM 40 MG/0.4 ML DISP.SYRIN SQ SCH (09:05)
[2016-11-21] MEDS: LIDOCAINE 5% (PATCH) 1 EA PATCH TP SCH (09:16)
--- NOTE | 2016-11-21 11:39 | NUR ---
[id number]: OXYCODONE 10 MG PO DUE TO GENERALIZED PAIN 8/10 UPON PT REQUEST AND WILL CONTINUE TO MONITOR FOR EFFECTIVENESS OF MEDICATION.
--- NOTE | 2016-11-21 12:34 | NUR ---
GPS/RN NOTES PT. C/O UPPER RIGHT SIDED ABDOMINAL PAIN ON BREATHING. NOTIFIED ARCHANA DELAROSA RAISE DRILL OPERATOR. AN UPPER ABDOMINAL X -RAY WAS ORDERED PER ARCHANA DELAROSA RAISE DRILL OPERATOR ORDERS.
--- NOTE | 2016-11-21 13:33 | NUR ---
[id number]: PT REFUSED GABAPENTIN 600 MG PO DUE ABDOMINAL PAIN.
--- NOTE | 2016-11-21 15:01 | NUR ---
[id number]: NOTIFIED ELIA DELAROSA ABOUT SMALL GALLSTONE FROM THE X-RAY OF THE ABDOMEN. DR. DELAROSA ORDERED ULTRASOUND OF THE GALLBLADDER.
--- NOTE | 2016-11-21 15:46 | NUR ---
GPS/RN NOTES PT. IS HAVING AN ABDOMINAL ULTRASOUND PROCEDURE IN HER ROOM AT THIS TIME.
[2016-11-21 16:00] VITALS: BP 140/88
--- NOTE | 2016-11-21 16:02 | NUR ---
GPS/RN NOTES ABDOMINAL ULTRASOUND IS COMPLETED, AND PT.'S BED IS IN LOWEST POSITION.
[2016-11-21] MEDS: LATANOPROST EYE DROP 0.005% 2.5 ML BOTTLE EACHEYE SCH (17:08)
--- NOTE | 2016-11-21 17:55 | NUR ---
[id number]: NOTIFIED DR. DELAROSA ABOUT BLADDER ULTRASOUND RESULT. PT IS ABLE TO DISCHARGE TOMORROW.
[2016-11-21 20:00] VITALS: BP 111/75
--- NOTE | 2016-11-21 21:23 | NUR ---
RN NOTES AT 2100 PT, REFUSED NEURONTIN 600 MO PO ENCOURAGED FOR MEDS STILL REFUSED
[2016-11-21] MEDS: TEMAZEPAM 7.5 MG CAPSULE PO PRN (23:12)
[2016-11-22] MEDS: GABAPENTIN 300 MG CAPSULE PO SCH (05:00)
--- NOTE | 2016-11-22 05:33 | NUR ---
RN NOTES AT 0500 PT, REFUSED NEURONTIN 600 MG PO, ENCOURAGED FOR MEDS STILL REFUSED
[2016-11-22] MEDS: oxyCODONE IR immediate release 5 MG CAPSULE PO PRN (06:15)
[2016-11-22 08:00] VITALS: BP 138/84
[2016-11-22] MEDS: PANTOPRAZOLE 40 MG TABLET.DR PO SCH (08:12)
[2016-11-22] MEDS: ARIPIPRAZOLE 5 MG TABLET PO SCH (08:13)
[2016-11-22] MEDS: POLYETHYLENE GLYCOL 3350 17 GM POWD.PACK PO SCH (08:14)
[2016-11-22] MEDS: DOCUSATE SODIUM 100 MG CAPSULE PO SCH (08:14)
[2016-11-22] MEDS: DULOXETINE HCL 30 MG CAPSULE.DR PO SCH (08:14)
[2016-11-22] MEDS: MEMANTINE HCL 5 MG TABLET PO SCH (08:14)
[2016-11-22] MEDS: CALCIUM CARB 250MG /VITAMIN D 1 UDTAB PO SCH (08:15)
[2016-11-22] MEDS: MULTIVIT, IRON, MIN NO. 8, FA 1 TAB TABLET PO SCH (08:15)
[2016-11-22 08:16] VITALS: BP 138/84
[2016-11-22] MEDS: METOPROLOL SUCCINATE 25 MG TAB.SR.24H PO SCH (08:16)
[2016-11-22] MEDS: ASCORBIC ACID 500 MG TABLET PO SCH (08:17)
[2016-11-22] MEDS: CHOLECALCIFEROL (VITAMIN D 3) 400 UNIT TABLET PO SCH (08:17)
[2016-11-22] MEDS: BUPROPION XL 150 MG TAB.ER.24 PO SCH (08:18)
[2016-11-22] MEDS: ALENDRONATE 70 MG TABLET PO SCH (08:19)
[2016-11-22] MEDS: ENOXAPARIN SODIUM 40 MG/0.4 ML DISP.SYRIN SQ SCH (08:19)
[2016-11-22] MEDS: LIDOCAINE 5% (PATCH) 1 EA PATCH TP SCH (08:20)
--- NOTE | 2016-11-22 12:00 | NUR ---
[id number]: PT IS 66 YEARS OLD FEMALE DISCHARGE TO [facility] AT [address] [facility] [place]. [address] IN STABLE CONDITION. COMPLIANT WITH MEDICATIONS, COOPERATIVE WITH TREATMENT PLANS. PT DENIES SI/HI AND INSTRUCTED TO GO TO THE CLOSEST ER IF DEVELOPING SI/HI. BEHAVIOR IMPROVED, PSYCHIATRIC TX PLANS MET, MEDICAL TX PLANS DEFERRED FOR CONTINUAL MONITORING. EDUCATED PT ABOUT AFTER CARE PLAN AND COPY PROVIDED. RETURNED PERSONAL BELONGINGS TO PT. MEDICATIONS RECONCILED DR. CLEMENTS AND DR. BISHOP FOR CONTINUITY OF CARE. PT SIGNED DISCHARGE PAPERWORK. SKIN ASSESSMENT DONE. PT LEFT THE UNIT VIA AMBULANCE ACCOMPANIED BY STAFF.
--- NOTE | 2016-11-22 13:18 | NUR ---
Discharge Note: Patient was discharged to [facility] ([address] [facility] [place] [address] fax: [phone]/ ) via [facility] ambulance at 12pm. Patient has an appointment with her psychiatrist Dr. Hamm on November 23, 2016 at 9AM to address her opioid dependency and will meet with him at the facility. Patient denied suicidal/homicidal ideation at the time of discharge. Facilitated info to IDT team who are in agreement with DC arrangement. The multidisciplinary exitcare form was done, printed, signed, and given to the patient.
== END 2016-11-22 12:00 | DRG 885 ==
LOC: ER 23:12 → GPS 11-11 02:46
PROVIDERS: ADMIT Psychiatry & Neurology Psychiatry; ATTEND Psychiatry & Neurology Psychiatry
DX: F33.3 Major depressive disorder, recurrent, severe with psychotic symptoms (principal); F02.80 Dementia in other diseases classified elsewhere, unspecified severity, without behavioral disturbance, psychotic disturbance, mood disturbance, and anxiety; E44.1 Mild protein-calorie malnutrition; F29 Unspecified psychosis not due to a substance or known physiological condition; D64.9 Anemia, unspecified; M48.00 Spinal stenosis, site unspecified; I10 Essential (primary) hypertension; Z88.5 Allergy status to narcotic agent; Z88.8 Allergy status to other drugs, medicaments and biological substances; E55.9 Vitamin D deficiency, unspecified; K80.20 Calculus of gallbladder without cholecystitis without obstruction; G30.9 Alzheimer's disease, unspecified; R56.9 Unspecified convulsions; S92.901S Unspecified fracture of right foot, sequela; X58.XXXS Exposure to other specified factors, sequela
CPT/HCPCS: 36415; 70551-TC; 74000-TC; 76705-TC; 80048-TC; 80053-TC; 80061-TC; 80076-TC; 80305; 81000-TC; 83735-TC; 84100-TC; 85025-TC; 87081-TC; 87086-TC; 95819-TC; 97001-TC; G0480; J1650; Z7610

== ENCOUNTER 2017-02-08 18:37 | Emergency (ER) | payer MEDICARE, MEDICAID ==
[~2017-02-08] VITALS: Ht 165.1 cm; Wt 64.9 kg
[~2017-02-08 18:37] MED LIST: ALEN70TA45 PO; ASCO500T8 PO; CALC-7 PO; CHOL100044 PO; CLON0.1T PO; DOCU-170 PO; DOCU-25 PO; GABA600T2 PO; GUAI5SYR PO; LATA2.5D2 EACHEYE; LIDO30AD10 TP; LUBI24CA7 PO; METO-302 PO; MULT-659 PO; OMEP20TA68 PO; ONDA-25 PO; OXYC-128 PO; OXYC10TA49 PO; POLY17PO4 PO; PSEU-231 PO
[2017-02-08 19:13] VITALS: BP 135/88
--- NOTE | 2017-02-08 20:14 | NUR ---
[facility]
[2017-02-08 20:48] LABS: APPEARANCE,URINE Clear (CLEAR); BILIRUBIN,URINE Negative (NEGATIVE); BLOOD, URINE Trace-lysed Ery/uL (NEGATIVE); COLOR,URINE Yellow (YELLOW); KETONES,URINE Negative (NEGATIVE); LEUKOCYTE ESTERASE ,URINE Trace (NEGATIVE); NITRITE, URINE Negative (NEGATIVE); PROTEIN,URINE Negative (NEGATIVE); UGLUCOSE Negative (NEGATIVE); UROBILINOGEN,URINE 0.2 EU/dL (0.2)
[2017-02-08 21:30] LABS: BACTERIA,URINE Rare /HPF (None Seen); SQUAMOUS EPITHELIAL CELL,UR Few /HPF (None Seen)
[2017-02-08] MEDS ORDERED: MORPHINE SULFATE INJ 2 MG/ML DISP.SYRIN IM ONE (21:30)
[2017-02-08] MEDS ORDERED: ONDANSETRON 4 MG TAB.RAPDIS SL ONE (21:30)
--- NOTE | 2017-02-08 21:36 | NUR ---
[facility] called for transport.
[2017-02-08] MEDS ORDERED: MORPHINE SULFATE INJ 2 MG/ML DISP.SYRIN ONE (21:44)
[2017-02-08] MEDS ORDERED: ONDANSETRON 4 MG TAB.RAPDIS ONE (21:45)
== END 2017-02-08 21:48 | disposition home or self-care (01) ==
LOC: ER 18:38
DX: M54.5 Low back pain (principal); G89.29 Other chronic pain; F29 Unspecified psychosis not due to a substance or known physiological condition; F32.9 Major depressive disorder, single episode, unspecified; I10 Essential (primary) hypertension; K21.9 Gastro-esophageal reflux disease without esophagitis; K59.00 Constipation, unspecified; M48.00 Spinal stenosis, site unspecified; Z88.5 Allergy status to narcotic agent; Z88.8 Allergy status to other drugs, medicaments and biological substances
CPT/HCPCS: 81000-TC; A4606; J2270; Q0162; Z7610

== ENCOUNTER 2017-02-09 21:04 | Inpatient (IN) | payer MEDICARE, MEDICAID ==
[~2017-02-09] VITALS: Ht 157.5 cm; Wt 80.3 kg
--- NOTE | 2017-02-09 21:08 | NUR ---
PT BRENNEN FROM SNF TO ER BED 14. SENT BY DR ANDERSEN FOR ADMISSION FOR BACK ABSCESS. PT WAS HERE LAST NIGHT FOR GABBY REASON. GOWNED AND PLACED ON MONITOR. MULTIPLE LOWER BACK ABSCESS NOTED. AWAITING MD WOOD.
--- NOTE | 2017-02-09 21:11 | NUR ---
DR DE LEÓN AT BEDSIDE FOR EVAL.
--- NOTE | 2017-02-09 21:21 | NUR ---
IV LINE STARTED BLOOD DRAWN AND SENT TO LAB.
[2017-02-09 21:25] LABS: BASOPHILS # (AUTO) 0.3 /CMM (0.0-0.2); BASOPHILS % (AUTO) 2.3 % (0.0-2.0); EOSINOPHILS # (AUTO) 0.2 /CMM (0.0-0.7); EOSINOPHILS % (AUTO) 1.4 % (0.0-6.0); HEMATOCRIT 32 % (33-45); HEMOGLOBIN 10.4 g/dL (11.5-14.8); LYMPHOCYTES # (AUTO) 2.1 /CMM (0.8-4.8); LYMPHOCYTES % (AUTO) 17.8 % (20.0-44.0); MEAN CORPUSCULAR HEMOGLOBIN 29 PG (26.0-33.0); MEAN CORPUSCULAR HGB CONC 33 g/dl (31.0-36.0); MEAN CORPUSCULAR VOLUME 86 fL (82-100); MONOCYTES # (AUTO) 0.6 /CMM (0.1-1.30); MONOCYTES % (AUTO) 5.5 % (2.0-12.0); NEUTROPHILS # (AUTO) 8.4 /CMM (1.8-8.9); PLATELET COUNT (AUTO) 277 /CMM (150-450); RDW COEFFICIENT OF VARIATION 15.3 (11.5-15.0); RED BLOOD CELL COUNT(AUTO) 3.65 MIL/uL (4.0-5.2); WHITE BLOOD COUNT (AUTO) 11.6 K/uL (4.3-11.0)
[2017-02-09] MEDS ORDERED: CEFTRIAXONE 1GM BAG (ER ONLY) 50 ML IV ONE ×2 (21:30→21:40)
[2017-02-09] MEDS ORDERED: IV NS 0.9% 500 ML BAG IV ONE (21:30)
[2017-02-09] MEDS ORDERED: VANCOMYCIN 1 GM in IV D5W 250 ML IV ONE (21:30)
[2017-02-09 21:33] LABS: CALCIUM, SERUM 8.5 mg/dL (8.5-10.1); CREATININE 1.1 mg/dL (0.6-1.3); POTASSIUM 4.5 mmol/L (3.5-5.1)
--- NOTE | 2017-02-09 21:33 | NUR ---
MADE PANEL CALL. VEGA WHITING TO RETURN CALL
[2017-02-09 21:39] LABS: ALBUMIN 2.6 g/dL (3.4-5.0); BILIRUBIN,DIRECT 0.1 mg/dL (0.0-0.2); BILIRUBIN,TOTAL 0.2 mg/dL (0.2-1.0)
[2017-02-09] MEDS ORDERED: VANCOMYCIN 1 GM VIAL ONE (21:41)
--- NOTE | 2017-02-09 21:43 | NUR ---
ASSIGNED M/S [id number]
[2017-02-09] MEDS ORDERED: diphenhydrAMINE HCL 50 MG/ML VIAL ONE (21:55)
[2017-02-09] MEDS ORDERED: diphenhydrAMINE HCL 50 MG/ML VIAL IV ONE (22:00)
--- NOTE | 2017-02-09 22:19 | NUR ---
REPORT GIVEN TO ANDREW. PT AWAITING TRANSFER TO FLOOR.
[2017-02-09 23:00] VITALS: BP 119/73
--- NOTE | 2017-02-09 23:00 | NUR ---
MS RN ADMITTING NOTES: ADMITTED A 66 YO FEMALE PATIENT WHO WAS BROUGHT TO THE ER FROM [facility] FOR BACK ABSCESS. PATIENT WAS BROUGHT TO MS FLOOR VIA W/C, AOX4, ON ROOM AIR, BREATHING EVEN AND UNLABORED, BREATH SOUNDS CLEAR TO AUSCULTATION. PATIENT WAS TRANSFERRED TO BED WITH ASSIST, WITH UNSTEADY GAIT. PATIENT NOTED TO HAVE 2 WOUNDS OVER MID LOWER BACK AND AT SACRUM, WITH SCANT AMOUNT OF PURULENT DISCHARGE NOTED. PIV OVER L WRIST G 20 WAS TENDER TO TOUCH PER PATIENT. CLEANSED WOUNDS WITH NS, PATTED DRY, AND PROTECTED WITH MEPILEX. PROVIDED FOR COMFORT AND SAFETY. BED IN LOWEST AND LOCKED POSITION, SIDERAILS UP X3, CALL LIGHT WITHIN REACH, BED ALARMS ON. WILL CONT TO MONITOR.
[2017-02-09 23:15] VITALS: BP 119/73
--- NOTE | 2017-02-10 00:30 | NUR ---
RN NOTES: NEW PIV OVER L HAND G [address] LARGER GAUGE IV CATHETER X1; BUT UNSUCCESSFUL.
[2017-02-10] MEDS ORDERED: ONDANSETRON HCL/PF 4 MG/2 ML VIAL IVP PRN (01:00)
[2017-02-10] MEDS ORDERED: Z GUARD REMEDY 2 OZ OINT TP PRN (01:00)
[2017-02-10] MEDS ORDERED: PSEUDOEPHEDRINE HCL 30 MG TABLET PO PRN (01:00)
[2017-02-10] MEDS ORDERED: CLONIDINE HCL 0.1 MG TABLET PO PRN (01:00)
[2017-02-10] MEDS ORDERED: ACETAMINOPHEN 325 MG TABLET PO PRN (01:00)
[2017-02-10] MEDS ORDERED: oxyCODONE/APAP (5/325 MG) 1 UDTAB TABLET PO PRN (01:00)
--- NOTE | 2017-02-10 01:10 | NUR ---
RN NOTES: UA SPECIMEN COLLECTED BY CLEAN CATCH METHOD.
[2017-02-10 05:02] LABS: APPEARANCE,URINE CLEAR (CLEAR); BILIRUBIN,URINE NEGATIVE (NEGATIVE); BLOOD, URINE TRACE-INTA Ery/uL (NEGATIVE); COLOR,URINE YELLOW (YELLOW); KETONES,URINE NEGATIVE (NEGATIVE); LEUKOCYTE ESTERASE ,URINE NEGATIVE (NEGATIVE); NITRITE, URINE NEGATIVE (NEGATIVE); PROTEIN,URINE NEGATIVE (NEGATIVE); UGLUCOSE NEGATIVE (NEGATIVE); UROBILINOGEN,URINE 0.2 EU/dL (0.2)
[2017-02-10 05:14] LABS: BACTERIA,URINE None seen /HPF (None Seen); RBC,URINE 0-2 /HPF (0-2); SQUAMOUS EPITHELIAL CELL,UR Few /HPF (None Seen); WBC,URINE 0-2 /HPF (0-3)
[2017-02-10] MEDS ORDERED: PIPERACILLIN /TAZOBACTAM 2.25 G VIAL IV ONE (05:16)
[2017-02-10] MEDS: PIPERACILLIN /TAZOBACTAM 2.25 G in IV D5W 50 ML IV SCH ×3 (05:39→18:26)
--- NOTE | 2017-02-10 07:00 | NUR ---
MS RN CLOSING NOTES: PATIENT IN BED, AOX4, ON ROOM AIR, BREATHING EVEN AND UNLABORED. APPEARS CALM AND IN NO DISTRESS. DENIES PAIN AT THIS TIME. PIV OVER L HAND G 24 INTACT AND PATENT TO FLUSH. MORNING CARE RENDERED. DUE MEDS GIVEN. PROVIDED FOR COMFORT AND SAFETY. NO ACUTE CHANGE IN CONDITION NOTED THROUGH SHIFT. WILL ENDORSE TO AM RN FOR OBDULIO.
--- NOTE | 2017-02-10 07:15 | NUR ---
RN Initial Notes: Received patient resting in bed. Non-labored breathing noted. Patient denies pain. Patient on room air. No shortness of breath noted. IV sites patent and intact. Bed at lowest/locked position. Call light within reach. Will continue to monitor.
[2017-02-10 08:00] VITALS: BP 132/79
[2017-02-10 08:25] LABS: BASOPHILS % (AUTO) 0.4 % (0.0-2.0); EOSINOPHILS # (AUTO) 0.1 /CMM (0.0-0.7); EOSINOPHILS % (AUTO) 1.2 % (0.0-6.0); HEMATOCRIT 33 % (33-45); HEMOGLOBIN 10.8 g/dL (11.5-14.8); LYMPHOCYTES # (AUTO) 1.4 /CMM (0.8-4.8); LYMPHOCYTES % (AUTO) 13.1 % (20.0-44.0); MEAN CORPUSCULAR HEMOGLOBIN 29 PG (26.0-33.0); MEAN CORPUSCULAR HGB CONC 33 g/dl (31.0-36.0); MEAN CORPUSCULAR VOLUME 87 fL (82-100); MONOCYTES # (AUTO) 0.6 /CMM (0.1-1.30); MONOCYTES % (AUTO) 5.7 % (2.0-12.0); NEUTROPHILS # (AUTO) 8.8 /CMM (1.8-8.9); NEUTROPHILS % (AUTO) 79.6 % (43.0-81.0); PLATELET COUNT (AUTO) 285 /CMM (150-450); RDW COEFFICIENT OF VARIATION 16.1 (11.5-15.0); RED BLOOD CELL COUNT(AUTO) 3.78 MIL/uL (4.0-5.2)
[2017-02-10] MEDS: POLYETHYLENE GLYCOL 3350 17 GM POWD.PACK PO SCH (08:51)
[2017-02-10] MEDS: DOCUSATE SODIUM 100 MG CAPSULE PO SCH ×2 (08:51→17:33)
[2017-02-10] MEDS: CHOLECALCIFEROL 1,000 UNIT TABLET (VIT D3) PO SCH (08:52)
[2017-02-10] MEDS: GABAPENTIN 400 MG CAPSULE PO SCH ×3 (08:52→17:00)
[2017-02-10] MEDS: CALCIUM CARB 250MG /VITAMIN D 1 UDTAB PO SCH ×2 (08:52→17:32)
[2017-02-10] MEDS: LIDOCAINE 5% (PATCH) 1 EA PATCH TP SCH ×2 (08:53→09:00)
[2017-02-10 09:19] LABS: CALCIUM, SERUM 8.7 mg/dL (8.5-10.1); POTASSIUM 3.9 mmol/L (3.5-5.1)
[2017-02-10 09:20] LABS: CREATININE 0.8 mg/dL (0.6-1.3); MAGNESIUM 1.9 mg/dL (1.8-2.4); PHOSPHORUS 3.8 mg/dL (2.5-4.9)
[2017-02-10] MEDS: oxyCODONE IR immediate release 5 MG CAPSULE PO PRN ×3 (09:30→23:04)
[2017-02-10] MEDS ORDERED: FEE PK DOSING 1 MIN EA MC ONE (09:37)
--- NOTE | 2017-02-10 10:03 | NUR ---
WOUND CARE CONSULT: PT PRESENTS WITH SCARRING TO BACK AND SACRUM WITH RAISED AREAS AND SMALL AMOUNT OF PURULENT DRAINAGE, PRESENT ON ADMISSION. PT IS AMBULATORY BUT INCONTINENT OF URINE PER PT REPORT. PT TO BE SEEN BY PLASTICS PER PMD. WILL SEE PRN. ALL SKIN PROTECTION MEASURES IN PLACE AND DISCUSSED WITH NURSING STAFF. MD IN AGREEMENT WITH PLAN OF CARE. Addendum: 02/10/17 at 1005 by SHEEBA MELENDEZ WNDNU Amended: Links added.
[2017-02-10] MEDS: VANCOMYCIN 0.75 GM in IV D5W 250 ML IV SCH ×2 (12:03→22:07)
[2017-02-10] MEDS ORDERED: LIDOCAINE 1%-EPI 1:100,000 20 ML VIAL TP ONE (12:30)
[2017-02-10] MEDS ORDERED: SILVER NITRATE APPLICATOR 1 EA BOX TP SCH (12:30)
[2017-02-10 13:08] LABS: INR 0.9 (0.87-1.13); PROTHROMBIN TIME 9.6 SECS (9.5-12.7)
[2017-02-10 16:00] VITALS: BP 142/94
[2017-02-10] MEDS: LATANOPROST EYE DROP 0.005% 2.5 ML BOTTLE EACHEYE SCH (17:31)
[2017-02-10] MEDS: METOPROLOL SUCCINATE 25 MG TAB.SR.24H PO SCH (17:34)
[2017-02-10] MEDS: DAKINS QUARTER STRENGTH (0.125%) 480 ML BOTTLE TOP SCH (19:39)
--- NOTE | 2017-02-10 19:42 | NUR ---
MS RN NOTES: The two abscesses on patient's mid lower back were drained by ELIA Ramirez. Patient tolerated procedure well. Non-labored breathing. No signs of distress
--- NOTE | 2017-02-10 19:43 | NUR ---
MS Closing Notes: Patient resting in bed. Non-labored breathing noted. Patient denies pain. Patient on room air. No shortness of breath noted. IV sites patent and intact. Bed at lowest/locked position. Call light within reach. Patient endorsed to other shift.
--- NOTE | 2017-02-10 20:00 | NUR ---
MS/RN RECEIVE PATIENT AWAKE, ALERT, ORIENTED, COMFORTABLE, NO C/O PAIN AT THIS TIME, NO DISTRESS NOTED, CALL LIGHT IN REACH. WILL MONITOR.
[2017-02-10 21:42] VITALS: BP 135/78
--- NOTE | 2017-02-10 22:55 | NUR ---
MS/RN PER PATIENT SHE TAKES TRAZODONE 200 MG AT HOME AND WANTS TO GET IT HERE. OBTAINED THIS ORDER FROM DR. VEGA WHITING. PATIENT ALSO C/O PAIN AND HER OXY IR IS NOT DUE UNTIL 00:30, IT'S Q [address] FERRARI ORDERED TO CHANGE IT TO Q 4 HOURS. CARRIED OUT.
[2017-02-10] MEDS ORDERED: oxyCODONE IR immediate release 5 MG CAPSULE ONE (23:01)
[2017-02-11] MEDS: PIPERACILLIN /TAZOBACTAM 2.25 G in IV D5W 50 ML IV SCH ×5 (00:04→23:52)
[2017-02-11] MEDS ORDERED: TRAZODONE 50 MG TABLET ONE (01:58)
[2017-02-11] MEDS: TRAZODONE 50 MG TABLET PO PRN ×2 (02:00→21:02)
--- NOTE | 2017-02-11 02:07 | NUR ---
MS/RN PER PATIENT SHE IS UNABLE TO SLEEP, TRAZODONE 400 MG PO WAS GIVEN ORDERED. WILL MONITOR.
--- NOTE | 2017-02-11 03:00 | NUR ---
MS/RN PATIENT IS SLEEPING AT THIS TIME, AROUSABLE, APPEAR COMFORTABLE, NO SIGNS OF DISTRESS NOTED, CALL LIGHT IN REACH. WILL CONTINUE TO MONITOR.
[2017-02-11 06:40] LABS: CALCIUM, SERUM 8.8 mg/dL (8.5-10.1); MAGNESIUM 1.9 mg/dL (1.8-2.4); PHOSPHORUS 3.8 mg/dL (2.5-4.9); POTASSIUM 4.1 mmol/L (3.5-5.1)
[2017-02-11 06:46] LABS: BASOPHILS % (AUTO) 0.2 % (0.0-2.0); EOSINOPHILS # (AUTO) 0.1 /CMM (0.0-0.7); HEMATOCRIT 35 % (33-45); HEMOGLOBIN 11.1 g/dL (11.5-14.8); LYMPHOCYTES # (AUTO) 1.5 /CMM (0.8-4.8); LYMPHOCYTES % (AUTO) 15.1 % (20.0-44.0); MEAN CORPUSCULAR HEMOGLOBIN 28 PG (26.0-33.0); MEAN CORPUSCULAR HGB CONC 32 g/dl (31.0-36.0); MEAN CORPUSCULAR VOLUME 88 fL (82-100); MONOCYTES # (AUTO) 0.6 /CMM (0.1-1.30); MONOCYTES % (AUTO) 6.3 % (2.0-12.0); NEUTROPHILS # (AUTO) 7.8 /CMM (1.8-8.9); NEUTROPHILS % (AUTO) 77.4 % (43.0-81.0); PLATELET COUNT (AUTO) 291 /CMM (150-450); RDW COEFFICIENT OF VARIATION 16.3 (11.5-15.0); RED BLOOD CELL COUNT(AUTO) 3.98 MIL/uL (4.0-5.2)
--- NOTE | 2017-02-11 06:48 | NUR ---
MS/RN PATIENT STILL SLEEPING, EASILY AROUSABLE, APPEAR COMFORTABLE, NO DISTRESS NOTED, CALL LIGHT IN REACH. ALL NEEDS ATTENDED AT THIS TIME. WILL CONTINUE TO MONITOR.
[2017-02-11 07:04] LABS: THYROID STIMULATING HORMONE 3.148 uIU/mL (0.358-3.74)
[2017-02-11 08:00] VITALS: BP 102/61
[2017-02-11] MEDS: POLYETHYLENE GLYCOL 3350 17 GM POWD.PACK PO SCH (09:00)
[2017-02-11] MEDS: METOPROLOL SUCCINATE 25 MG TAB.SR.24H PO SCH ×2 (09:00→17:00)
[2017-02-11] MEDS: LIDOCAINE 5% (PATCH) 1 EA PATCH TP SCH ×2 (09:00→09:38)
[2017-02-11] MEDS: DAKINS QUARTER STRENGTH (0.125%) 480 ML BOTTLE TOP SCH (09:16)
[2017-02-11] MEDS: CALCIUM CARB 250MG /VITAMIN D 1 UDTAB PO SCH ×2 (09:37→18:08)
[2017-02-11] MEDS: GABAPENTIN 300 MG CAPSULE PO SCH ×3 (09:37→17:00)
[2017-02-11] MEDS: DOCUSATE SODIUM 100 MG CAPSULE PO SCH ×2 (09:38→18:08)
[2017-02-11] MEDS: CHOLECALCIFEROL 1,000 UNIT TABLET (VIT D3) PO SCH (09:38)
[2017-02-11] MEDS: VANCOMYCIN 0.75 GM in IV D5W 250 ML IV SCH ×2 (09:40→22:09)
[2017-02-11] MEDS: oxyCODONE IR immediate release 5 MG CAPSULE PO PRN ×2 (09:54→18:02)
--- NOTE | 2017-02-11 10:30 | NUR ---
DR. JONES IN TO SEE PT.
--- NOTE | 2017-02-11 12:30 | NUR ---
IV SITES SLIGHTLY SWOLLEN IN LT. WRIST AREA,REMOVED AND NEW START RT. FINGER ANGIO SIZE #22.
[2017-02-11] MEDS: diphenhydrAMINE HCL 50 MG/ML VIAL IV PRN (15:33)
--- NOTE | 2017-02-11 15:52 | NUR ---
MED. X1 FOR ITCHING,X1 FOR PAIN WITH OXY-IR.
[2017-02-11 16:00] VITALS: BP 107/69
[2017-02-11] MEDS: LACTOBACILLUS RHAMNOSUS GG 1 EACH CAP.SPRINK PO SCH (18:08)
[2017-02-11] MEDS: LATANOPROST EYE DROP 0.005% 2.5 ML BOTTLE EACHEYE SCH (18:08)
--- NOTE | 2017-02-11 18:52 | NUR ---
MEDICATED AGAIN FOR PAIN WITH OXY-IR.
--- NOTE | 2017-02-11 19:30 | NUR ---
MS/RN RECEIVE PATIENT AWAKE, ALERT, ORIENTED, WITH C/O PAIN 7/10 IN HER WOUND AT THE BACK, SHE JUST RECEIVED OXY IR ABOUT ONE HOUR AGO. WILL CONTINUE TO MONITOR PAIN LEVEL AND WILL MEDICATE ACCORDINGLY, FALL PRECAUTION.
[2017-02-11 20:00] VITALS: BP 101/67
--- NOTE | 2017-02-11 23:02 | NUR ---
MS/RN PATIENT IS SLEEPING AT THIS TIME, AROUSABLE, APPEAR COMFORTABLE, NO SIGNS OF DISTRESS NOTED, CALL LIGHT IN REACH. WILL CONTINUE TO MONITOR.
[2017-02-12] MEDS: PIPERACILLIN /TAZOBACTAM 2.25 G in IV D5W 50 ML IV SCH ×4 (06:14→23:26)
--- NOTE | 2017-02-12 06:17 | NUR ---
MS/RN AWAKE, COMFORTABLE, NO C/O PAIN, NO CHANGE IN CONDITION ALL NEEDS ATTENDED AT THIS TIME. WILL CONTINUE TO MONITOR.
[2017-02-12 07:08] LABS: CALCIUM, SERUM 8.9 mg/dL (8.5-10.1); CREATININE 0.8 mg/dL (0.6-1.3); POTASSIUM 4.3 mmol/L (3.5-5.1)
[2017-02-12 08:00] VITALS: BP 100/66
--- NOTE | 2017-02-12 08:15 | NUR ---
RN NOTES RECEIVED PT. PT IS STABLE AND SLEEPING IN BED. NO S/S OF DISTRESS OR SOB. NO C/O PAIN AT THIS TIME. WILL FOLLOW UP ON CONSENT FORM FOR INCISION AND DRAINAGE OF ABSCESS. IV ACCESS LOCATED ON RIGHT FINGER, 22G SL. SAFETY MEASURES IN PLACE, CALL LIGHT WITHIN REACH. WILL CONTINUE TO MONITOR.
[2017-02-12] MEDS: LACTOBACILLUS RHAMNOSUS GG 1 EACH CAP.SPRINK PO SCH ×2 (08:57→16:17)
[2017-02-12] MEDS: DOCUSATE SODIUM 100 MG CAPSULE PO SCH ×2 (08:58→16:17)
[2017-02-12] MEDS: GABAPENTIN 300 MG CAPSULE PO SCH ×3 (08:58→16:22)
[2017-02-12] MEDS: CHOLECALCIFEROL 1,000 UNIT TABLET (VIT D3) PO SCH (08:58)
[2017-02-12] MEDS: CALCIUM CARB 250MG /VITAMIN D 1 UDTAB PO SCH ×2 (08:58→16:17)
[2017-02-12] MEDS: POLYETHYLENE GLYCOL 3350 17 GM POWD.PACK PO SCH (08:59)
[2017-02-12] MEDS: oxyCODONE IR immediate release 5 MG CAPSULE PO PRN ×3 (08:59→20:43)
[2017-02-12] MEDS: METOPROLOL SUCCINATE 25 MG TAB.SR.24H PO SCH ×2 (09:00→16:18)
[2017-02-12] MEDS: LIDOCAINE 5% (PATCH) 1 EA PATCH TP SCH (09:01)
[2017-02-12] MEDS: DAKINS QUARTER STRENGTH (0.125%) 480 ML BOTTLE TOP SCH (09:10)
[2017-02-12] MEDS: diphenhydrAMINE HCL 50 MG/ML VIAL IV PRN (10:27)
[2017-02-12] MEDS: VANCOMYCIN 0.75 GM in IV D5W 250 ML IV SCH ×2 (10:27→21:47)
[2017-02-12 16:00] VITALS: BP 127/77
[2017-02-12] MEDS: LATANOPROST EYE DROP 0.005% 2.5 ML BOTTLE EACHEYE SCH (16:17)
--- NOTE | 2017-02-12 18:49 | NUR ---
RN CLOSING NOTE PT IS IN BED RESTING. NO S/S OF DISTRESS OR SOB. NO C/O PAIN AT THIS TIME. ALL PATIENT NEEDS ANTICIPATED AND MET. SAFETY MEASURES IN PLACE, CALL LIGHT WITHIN REACH. WILL ENDORSE TO SERVICE ATTENDANT FOR OBDULIO.
--- NOTE | 2017-02-12 19:20 | NUR ---
RN NOTES RECEIVED PT AWAKE, HOB ELEVATED, NO SOB, NOT IN DISTRESS, ON ROOM AIR AND TOLERATED WELL. PT ALERT AND ORIENTED X3, DENIES ANY PAIN AND DISCOMFORT AT THIS TIME. PAIN ON LOWER BACK WOUNDS HURTS ON MOVEMENT ONLY. IV ACCESS ON RIGHT INDEX FINGER PATENT AND INTACT.BOTH HEELS OFFLOADED. KEPT COMFORTABLE AND ATTENDED. FALL PRECAUTION OBSERVED. WILL CONTINUE TO MONITOR PT.
[2017-02-12 20:00] VITALS: BP 157/77
--- NOTE | 2017-02-12 20:43 | NUR ---
RN NOTES PT COMPLAINS OF PAIN ON HER LOWER BACK 02/19, OXY IR 5MG TAB GIVENN PO AND TOLERATED WELL. WILL CONTINUE TO MONITOR PT.
[2017-02-12] MEDS: TRAZODONE 50 MG TABLET PO PRN (21:48)
--- NOTE | 2017-02-12 21:48 | NUR ---
RN NOTES PT VERBALIZING DIFFICULTY TO SLEEP, DESYREL 200 MGS TAB GIVEN PO. WILL CONTINUE TO MONITOR PT.
--- NOTE | 2017-02-12 21:56 | NUR ---
RN NOTES PT LOOKS ANXIOUS AND VERBALIZED SHE FEELS SHE'S SHAKING FROM INSIDE AND SAID SHE'S ON KLONOPIN BID WHEN SHE WAS AT SNF. SPOKE TO DR WHITING AND ORDERED KLONOPIN 0.5 MG TAB PO BID PRN FOR ANXIETY. PT MADE AWARE. WILL CONTINUE TO MONITOR PT.
[2017-02-12 22:00] VITALS: BP 157/77
[2017-02-12] MEDS ORDERED: clonazePAM 0.5 MG TABLET PO PRN (22:00)
[2017-02-13] MEDS ORDERED: clonazePAM 0.5 MG TABLET ONE (03:46)
--- NOTE | 2017-02-13 03:49 | NUR ---
RN NOTES PT FEELS ANXIOUS, PER PT. SHE FEELS HER INSIDE IS SHAKING. KLONOPIN 0.5 MG TAB GIVEN PO AND TOLERATED WELL. WILL CONTINUE TO MONITOR PT.
[2017-02-13] MEDS: PIPERACILLIN /TAZOBACTAM 2.25 G in IV D5W 50 ML IV SCH ×2 (05:09→12:32)
--- NOTE | 2017-02-13 06:45 | NUR ---
RN NOTES PT ASLEEP BREATHING REGULAR AND UNLABORED, NO SOB, NOT IN DISTRESS, ON ROOM AIR WITH GOOD SATURATION. VITAL SIGNS STABLE, AFEBRILE. NO EPISODE NAUSEA AND VOMITING. KEPT PAIN AT TOLERABLE LEVEL. WOUND DRESSING ON LOWER BACK DONE. KEPT CLEAN AND DRY. ALL DUE MEDS GIVEN. ALL NEEDS ATTENDED. WILL ENDORSE TO MORNING RN FOR CONTINUITY OF CARE.
--- NOTE | 2017-02-13 07:00 | NUR ---
MS RN NOTES PATIENT IN BED, SLEEPING. AROUSES EASILY. ON ROOM AIR, NO SOB. BREATHING EVEN AND NON LABORED. APPEARS COMFORTABLE IN BED, NO C/O PAIN AT THIS TIME. PLACE CALL LIGHT WITHIN REACH. WILL CONT TO MONITOR.
[2017-02-13 07:33] LABS: CALCIUM, SERUM 8.8 mg/dL (8.5-10.1); CREATININE 0.7 mg/dL (0.6-1.3); POTASSIUM 4.2 mmol/L (3.5-5.1)
[2017-02-13 08:00] VITALS: BP 132/76
[2017-02-13] MEDS: POLYETHYLENE GLYCOL 3350 17 GM POWD.PACK PO SCH ×2 (09:00→09:18)
[2017-02-13] MEDS: GABAPENTIN 300 MG CAPSULE PO SCH ×3 (09:00→13:00)
[2017-02-13] MEDS: LIDOCAINE 5% (PATCH) 1 EA PATCH TP SCH (09:13)
[2017-02-13] MEDS: CALCIUM CARB 250MG /VITAMIN D 1 UDTAB PO SCH (09:18)
[2017-02-13] MEDS: LACTOBACILLUS RHAMNOSUS GG 1 EACH CAP.SPRINK PO SCH (09:18)
[2017-02-13] MEDS: DOCUSATE SODIUM 100 MG CAPSULE PO SCH (09:18)
[2017-02-13] MEDS: CHOLECALCIFEROL 1,000 UNIT TABLET (VIT D3) PO SCH (09:18)
[2017-02-13] MEDS: METOPROLOL SUCCINATE 25 MG TAB.SR.24H PO SCH (09:23)
[2017-02-13] MEDS: oxyCODONE IR immediate release 5 MG CAPSULE PO PRN (09:33)
[2017-02-13] MEDS: DAKINS QUARTER STRENGTH (0.125%) 480 ML BOTTLE TOP SCH (09:34)
--- NOTE | 2017-02-13 10:05 | NUR ---
PATIENT REPORTED TO THE MD, SHE HAS EPISODE OF DIARRHEA LAST NIGHT. WILL COLLECT STOOL FOR C-DIFF, PATIENT IS AWARE.
[2017-02-13] MEDS: VANCOMYCIN 0.75 GM in IV D5W 250 ML IV SCH (10:19)
[2017-02-13 10:23] VITALS: BP 132/76
--- NOTE | 2017-02-13 15:25 | NUR ---
MS RN DISCHARGED PATIENT HAS BEEN CLEARED FOR DISCHARGE TO SNF BY MD. PATIENT IS AMBULATORY WITH ASSIST/WALKER. BREATHING EVEN AND NON LABORED, V/S REMAINS STABLE. DISCHARGE INSTRUCTION GIVEN TO THE PATIENT, VERBALIZED UNDERSTANDING. BELONGINGS CHECK AND SEND WITH THE PATIENT PRIOR DC. CALLED [facility] FOR REPORT SPOKE TO HUBER. PATIENT LEFT HOSP IN STABLE CONDITION VIA AMBULANCE. FAMILY INFORMED.
== END 2017-02-13 15:25 | DRG 603 ==
LOC: ER 21:06 → MED 22:29
PROVIDERS: ADMIT Nurse Practitioner Acute Care; ATTEND Nurse Practitioner Acute Care
PROC: 0W9L0ZZ Drainage of Lower Back, Open Approach (ICD-10-PCS; principal; 2017-02-10)
DX: L02.212 Cutaneous abscess of back [any part, except buttock and flank] (principal); E88.09 Other disorders of plasma-protein metabolism, not elsewhere classified; I10 Essential (primary) hypertension; D63.8 Anemia in other chronic diseases classified elsewhere; F32.9 Major depressive disorder, single episode, unspecified; D72.829 Elevated white blood cell count, unspecified; K21.9 Gastro-esophageal reflux disease without esophagitis; I25.10 Atherosclerotic heart disease of native coronary artery without angina pectoris; L03.312 Cellulitis of back [any part except buttock and flank]; M48.00 Spinal stenosis, site unspecified; M19.90 Unspecified osteoarthritis, unspecified site
CPT/HCPCS: 36415; 80048-TC; 80061-TC; 80076-TC; 80202-TC; 81000-TC; 83735-TC; 84100-TC; 84443-TC; 85025-TC; 85610-TC; 87070-TC; 87081-TC; A4606; A6253; A6402; A6403; J0696; J1200; J2543; J3370; J3490; J7040; J7050; J7060; Z7610

== ENCOUNTER 2017-02-20 12:35 | Outpatient (CLI) | payer MEDICARE, MEDICAID | END 2017-02-20 23:59 | disposition home or self-care (01) | LOC: WOU 12:35 | PROVIDERS: ATTEND Surgery | DX: T81.4XXA Infection following a procedure, initial encounter (principal); L02.212 Cutaneous abscess of back [any part, except buttock and flank]; F32.9 Major depressive disorder, single episode, unspecified; I25.10 Atherosclerotic heart disease of native coronary artery without angina pectoris; I10 Essential (primary) hypertension; I96 Gangrene, not elsewhere classified | CPT/HCPCS: 11043; A6402; A6407 ==

== ENCOUNTER 2017-04-06 12:20 | Outpatient (CLI) | payer MEDICARE, MEDICAID | END 2017-04-06 23:59 | disposition home or self-care (01) | LOC: WOU 12:20 | PROVIDERS: ATTEND Surgery | DX: L03.312 Cellulitis of back [any part except buttock and flank] (principal); I25.10 Atherosclerotic heart disease of native coronary artery without angina pectoris; I10 Essential (primary) hypertension; Z91.81 History of falling; F32.9 Major depressive disorder, single episode, unspecified | CPT/HCPCS: 11043; A6402; A6407 ==

== ENCOUNTER 2017-05-08 13:46 | Outpatient (CLI) | payer MEDICARE, MEDICAID | END 2017-05-08 23:59 | disposition home health service (06) | LOC: WOU 13:46 | PROVIDERS: ATTEND Surgery | DX: T81.4XXA Infection following a procedure, initial encounter (principal); L03.312 Cellulitis of back [any part except buttock and flank]; I25.10 Atherosclerotic heart disease of native coronary artery without angina pectoris; I10 Essential (primary) hypertension; F32.9 Major depressive disorder, single episode, unspecified | CPT/HCPCS: 11043; A6402; A6407 ==